=== PATIENT | female | born 1965 | race African-American/Black ===

== ENCOUNTER 2016-09-02 08:05 | Emergency (ER) | payer OTHER ==
[~2016-09-02] VITALS: Ht 160 cm; Wt 86.5 kg
[2016-09-02] MEDS ORDERED: METF500T4 PO (08:25)
[2016-09-02] MEDS ORDERED: MORPHINE SULFATE 4 MG/ML CPJ (NOT FOR IM USE) IV STA (08:41)
[2016-09-02] MEDS ORDERED: ASPIRIN 81MG TABLET PO STA (08:41)
[2016-09-02] MEDS ORDERED: ONDANSETRON HCL 4MG/2ML VIAL IV STA (08:41)
[2016-09-02] MEDS ORDERED: NITROGLYCERIN OINT 1GM/INCH UDPKT TD STA (08:41)
[2016-09-02 09:21] LABS: BASOPHILS % 0.7 % (0.0-2.0); HEMATOCRIT. 38.8 % (36.0-48.0); HEMOGLOBIN. 12.7 g/dL (12.0-16.0); LYMPHOCYTES % 33.3 % (20.0-50.0); MEAN CORPUSCULAR HEMOGLOBIN 29.5 pg (28.0-32.0); MEAN CORPUSCULAR HGB CONC 32.7 g/dL (31.0-37.0); MEAN CORPUSCULAR VOLUME 90.2 fL (81.0-99.0); MEAN PLATELET VOLUME 9.7 fl (7.4-10.4); MONOCYTES % 4.1 % (2.0-8.0); NEUTROPHILS % 58.9 % (40.0-76.0); PLATELET 220 x1000/uL (130-400); RED BLOOD CELL COUNT 4.31 mill/uL (4.2-5.4); RED CELL DISTRIBUTION WIDTH 14.1 % (11.6-14.6); WHITE BLOOD COUNT 10.6 x1000/uL (4.5-11.0)
[2016-09-02 09:32] LABS: ALBUMIN 3.6 g/dL (3.4-5.0); ANION GAP 13; CALCIUM 8.1 mg/dL (8.5-10.1); CARBON DIOXIDE 23 mEq/L (21-32); CHLORIDE 109 mEq/L (98-107); INDEX HEMOLYSI 4 (1-3); INDEX ICTERIC 1 (1-4); INDEX LIPEMIC 1 (1-3); LIPASE 187 IU/L (73-393); UREA NITROGEN BLOOD 12 mg/dL (7-21)
[2016-09-02 09:35] LABS: HCG SCREEN NEGATIVE
[2016-09-02 09:38] LABS: ALANINE AMINOTRANSFERASE 16 IU/L (13-61); CREATINE KINASE 185 IU/L (26-192); CREATINE KINASE MB FRACTION 0.8 ng/mL (0.5-3.6); NT PRO B-TYPE NATRIURETIC PEP 27 pg/mL (5-125); TROPONIN I < 0.02 ng/mL (0.00-0.04); eGFR > 60 mL/min (>60)
[2016-09-02 09:57] LABS: PARTIAL THROMBOPLASTIN TIME 26.6 sec (24.0-34.0); PROTHROMBIN TIME 10.4 sec
[2016-09-02 11:43] VITALS: BP 106/65
== END 2016-09-02 12:48 | disposition left against medical advice (07) ==
LOC: ER 08:06
DX: R07.9 Chest pain, unspecified (principal); R42 Dizziness and giddiness; E11.9 Type 2 diabetes mellitus without complications; F17.210 Nicotine dependence, cigarettes, uncomplicated; F12.10 Cannabis abuse, uncomplicated; Z79.4 Long term (current) use of insulin; Z98.890 Other specified postprocedural states
CPT/HCPCS: 36415; 70450; 71010; 80053; 82550; 82553; 83690; 83880; 84484; 84703; 85025; 85610; 85730; 93005; 96374; 96375; 99285; J2270; J2405

== ENCOUNTER 2017-02-06 09:52 | Emergency (ER) | payer OTHER ==
[~2017-02-06] VITALS: Ht 160 cm; Wt 84.0 kg
[~2017-02-06 09:52] MED LIST: METF500T4 PO
[2017-02-06] MEDS ORDERED: ACETAMINOPHEN 325MG TABLET PO STA (12:38)
[2017-02-06 14:26] LABS: CLARITY URINE CLOUDY (CLEAR); COLOR URINE YELLOW (YELLOW); GLUCOSE URINE NEGATIVE (NEGATIVE); KETONES URINE NEGATIVE (NEGATIVE); LEUKOCYTE ESTERASE URINE NEGATIVE (NEGATIVE); NITRITE URINE NEGATIVE (NEGATIVE); OCCULT BLOOD URINE NEGATIVE (NEGATIVE); PROTEIN URINE NEGATIVE (NEGATIVE); SPECIFIC GRAVITY URINE 1.024 (1.005-1.030); UROBILINOGEN URINE 0.2 E.U./dL (0.2-1.0)
[2017-02-06 14:41] VITALS: BP 130/94
== END 2017-02-06 15:18 | disposition home or self-care (01) ==
LOC: ER 13:09
DX: R10.2 Pelvic and perineal pain (principal); E11.9 Type 2 diabetes mellitus without complications; R03.0 Elevated blood-pressure reading, without diagnosis of hypertension; F17.210 Nicotine dependence, cigarettes, uncomplicated
CPT/HCPCS: 76830; 76856; 81001; 81025; 99285

== ENCOUNTER 2018-03-29 15:49 | Emergency (ER) | payer OTHER ==
[~2018-03-29] VITALS: Ht 160 cm; Wt 85.0 kg
[~2018-03-29 15:49] MED LIST changes: +METF-414 PO; -METF500T4 PO
[2018-03-29] MEDS ORDERED: SODIUM CHLORIDE 0.9% 1,000 ML IV ONE ×2 (16:45→20:07)
[2018-03-29] MEDS ORDERED: INSULIN REGULAR (HUMULIN R) 300UNITS/3ML SUBCUT ONE (16:45)
[2018-03-29 17:05] LABS: CLARITY URINE CLEAR (CLEAR); COLOR URINE YELLOW (YELLOW); KETONES URINE NEGATIVE (NEGATIVE); LEUKOCYTE ESTERASE URINE NEGATIVE (NEGATIVE); NITRITE URINE NEGATIVE (NEGATIVE); OCCULT BLOOD URINE TRACE (NEGATIVE); PH URINE 5.5 (4.5-8.0); PROTEIN URINE NEGATIVE (NEGATIVE); UROBILINOGEN URINE 0.2 E.U./dL (0.2-1.0)
[2018-03-29 17:06] LABS: BASOPHILS % 0.4 % (0.0-2.0); EOSINOPHILS % 2.9 % (0.0-5.0); HEMATOCRIT. 39.1 % (36.0-48.0); LYMPHOCYTES % 37.3 % (20.0-50.0); MEAN CORPUSCULAR HEMOGLOBIN 30.1 pg (28.0-32.0); MEAN CORPUSCULAR VOLUME 90.5 fL (81.0-99.0); MEAN PLATELET VOLUME 10.7 fl (7.4-10.4); MONOCYTES % 4.9 % (2.0-8.0); NEUTROPHILS % 54.5 % (40.0-76.0); PLATELET 237 x1000/uL (130-400); RED BLOOD CELL COUNT 4.32 mill/uL (4.2-5.4); RED CELL DISTRIBUTION WIDTH 13.1 % (11.6-14.6)
[2018-03-29 17:16] LABS: CHLORIDE 97 mEq/L (98-107)
[2018-03-29 21:44] VITALS: BP 120/89
== END 2018-03-29 21:46 | disposition home or self-care (01) ==
LOC: ER 15:49
DX: E11.65 Type 2 diabetes mellitus with hyperglycemia (principal); R03.0 Elevated blood-pressure reading, without diagnosis of hypertension; F17.210 Nicotine dependence, cigarettes, uncomplicated
CPT/HCPCS: 36415; 71045; 80053; 81003; 82962; 83605; 83690; 83880; 84443; 84484; 85025; 93005; 99285; J1815; J7030

== ENCOUNTER 2018-12-31 10:25 | Emergency (ER) | payer OTHER ==
[~2018-12-31] VITALS: Ht 160 cm; Wt 82.0 kg
[2018-12-31] MEDS ORDERED: IBUPROFEN 600MG TABLET PO ONE (12:15)
[2018-12-31 12:38] VITALS: BP 122/76
== END 2018-12-31 12:39 | disposition home or self-care (01) ==
LOC: ER 10:25
DX: O92.29 Other disorders of breast associated with pregnancy and the puerperium (principal)
CPT/HCPCS: 99283

== ENCOUNTER 2019-06-13 09:57 | Emergency (ER) | payer OTHER ==
[~2019-06-13] VITALS: Ht 160 cm; Wt 82.0 kg
[2019-06-13] MEDS ORDERED: IBUPROFEN 400MG TABLET PO ONE (11:00)
[2019-06-13 11:55] VITALS: BP 132/70
== END 2019-06-13 11:55 | disposition home or self-care (01) ==
LOC: ER 09:57
DX: M25.551 Pain in right hip (principal); M54.5 Low back pain; E11.9 Type 2 diabetes mellitus without complications; Z98.890 Other specified postprocedural states; W01.0XXA Fall on same level from slipping, tripping and stumbling without subsequent striking against object, initial encounter; Y93.89 Activity, other specified; Y92.89 Other specified places as the place of occurrence of the external cause; Y99.8 Other external cause status
CPT/HCPCS: 72100; 73502; 99283

== ENCOUNTER 2020-01-26 12:04 | Emergency (ER) | payer OTHER ==
[~2020-01-26] VITALS: Ht 160 cm; Wt 82.0 kg
[2020-01-26] MEDS ORDERED: SODIUM CHLORIDE 0.9% 1,000 ML IV ONE (14:13)
[2020-01-26] MEDS ORDERED: ACETAMINOPHEN 325MG TABLET PO STA (14:13)
[2020-01-26] MEDS ORDERED: METOCLOPRAMIDE HCL 10MG/2ML VIAL IV ONE (14:15)
[2020-01-26 14:33] LABS: BASOPHILS % 0.4 % (0.0-2.0); CHLORIDE 103 mEq/L (98-107); EOSINOPHILS % 1.6 % (0.0-5.0); HEMATOCRIT. 38.3 % (36.0-48.0); HEMOGLOBIN. 12.8 g/dL (12.0-16.0); LYMPHOCYTES % 28.6 % (20.0-50.0); MEAN CORPUSCULAR VOLUME 92.8 fL (81.0-99.0); MEAN PLATELET VOLUME 11.1 fl (7.4-10.4); MONOCYTES % 2.9 % (2.0-8.0); NEUTROPHILS % 66.5 % (40.0-76.0); PLATELET 259 x1000/uL (130-400); RED BLOOD CELL COUNT 4.13 mill/uL (4.2-5.4); RED CELL DISTRIBUTION WIDTH 13.6 % (11.6-14.6)
[2020-01-26 14:38] LABS: ETHANOL BLOOD < 10 mg/dL
[2020-01-26 14:50] LABS: CLARITY URINE CLEAR (CLEAR); COLOR URINE YELLOW (YELLOW); KETONES URINE NEGATIVE (NEGATIVE); LEUKOCYTE ESTERASE URINE NEGATIVE (NEGATIVE); NITRITE URINE NEGATIVE (NEGATIVE); OCCULT BLOOD URINE NEGATIVE (NEGATIVE); PH URINE 5.5 (4.5-8.0); PROTEIN URINE NEGATIVE (NEGATIVE)
[2020-01-26 15:07] LABS: *AMPHETAMINES SCREEN URINE NEGATIVE (NEGATIVE); *BARBITURATES SCREEN URINE NEGATIVE (NEGATIVE); *BENZODIAZEPINES SCREEN URINE NEGATIVE (NEGATIVE); *COCAINE SCREEN URINE NEGATIVE (NEGATIVE); METHADONE URINE SCREEN NEGATIVE (NEGATIVE)
[2020-01-26 15:08] LABS: CANNABINOID URINE SCREEN NEGATIVE (NEGATIVE); OPIATES URINE SCREEN NEGATIVE (NEGATIVE); PHENCYCLIDINE URINE SCREEN NEGATIVE (NEGATIVE)
[2020-01-26 18:55] VITALS: BP 102/68
== END 2020-01-26 19:36 | disposition home or self-care (01) ==
LOC: ER 12:23
DX: R51 Headache (principal); M54.2 Cervicalgia; E11.9 Type 2 diabetes mellitus without complications; Z98.890 Other specified postprocedural states
CPT/HCPCS: 36415; 70450; 71045; 80053; 80305; 80320; 81003; 82962; 83605; 85025; 85651; 86140; 86850; 86900; 86901; 93005; 96361; 96374; 99285; J2765; J7030; G0480

== ENCOUNTER 2020-07-12 11:16 | Emergency (ER) | payer OTHER ==
[~2020-07-12] VITALS: Ht 160 cm; Wt 63.4 kg
[~2020-07-12 11:16] MED LIST changes: +LIDOCAINE HCL/PF 1% 2ML VIAL ONE
[2020-07-12] MEDS ORDERED: SODIUM CHLORIDE 0.9% 1,000 ML IV ONE ×2 (11:45→14:00)
[2020-07-12 12:01] LABS: BASOPHILS % 0.7 % (0.0-2.0); HEMATOCRIT. 41.9 % (36.0-48.0); HEMOGLOBIN. 13.8 g/dL (12.0-16.0); LYMPHOCYTES % 26.4 % (20.0-50.0); MEAN CORPUSCULAR HEMOGLOBIN 30.6 pg (28.0-32.0); MEAN CORPUSCULAR VOLUME 92.9 fL (81.0-99.0); MEAN PLATELET VOLUME 10.9 fl (7.4-10.4); MONOCYTES % 4.6 % (2.0-8.0); NEUTROPHILS % 67.3 % (40.0-76.0); PLATELET 224 x1000/uL (130-400); RED BLOOD CELL COUNT 4.51 mill/uL (4.2-5.4)
[2020-07-12 12:02] LABS: CLARITY URINE CLEAR (CLEAR); COLOR URINE YELLOW (YELLOW); KETONES URINE 1+ (NEGATIVE); LEUKOCYTE ESTERASE URINE NEGATIVE (NEGATIVE); NITRITE URINE NEGATIVE (NEGATIVE); OCCULT BLOOD URINE NEGATIVE (NEGATIVE); PROTEIN URINE NEGATIVE (NEGATIVE); SPECIFIC GRAVITY URINE 1.035 (1.005-1.030); UROBILINOGEN URINE 0.2 E.U./dL (0.2-1.0)
[2020-07-12 12:07] LABS: CHLORIDE 86 mEq/L (98-107)
[2020-07-12 12:16] LABS: BETA HYDROXYBUTYRATE 1.5 mMol/L (0.0-0.3)
[2020-07-12] MEDS ORDERED: INSULIN REGULAR (HUMULIN R) 300UNITS/3ML VIAL SUBCUT NR (12:30)
[2020-07-12 14:11] LABS: BG BASE EXCESS -2.2 mmol/L (-2.0-2.0); BG CARBOXYHEMOGLOBIN 1.9 % (0.5-1.5); BG DEOXYHEMOGLOBIN 2.8 % (0.0-5.0); BG FRACTION INSPIRED OXYGEN 21; BG HCO3 ACT 22.4 mmol/L (22.0-26.0); BG METHEMOGLOBIN 0.1 % (0.0-1.5); BG OXYGEN SATURATION 97.1 % (92.0-98.5); BG OXYHEMOGLOBIN 95.2 % (94.0-97.0); BG PCO2 38.2 mmHg (35.0-45.0); BG PH 7.387 (7.350-7.450); BG SAMPLE SITE RIGHT RADIAL; BG VENT MODE ROOM AIR
[2020-07-12] MEDS ORDERED: INSULIN REGULAR (HUMULIN R) 300UNITS/3ML VIAL IV ONE (14:30)
[2020-07-12 21:15] VITALS: BP 107/79
== END 2020-07-12 21:14 | disposition home or self-care (01) ==
LOC: ER 11:56
DX: E11.65 Type 2 diabetes mellitus with hyperglycemia (principal); E87.8 Other disorders of electrolyte and fluid balance, not elsewhere classified; Z79.4 Long term (current) use of insulin; Z03.818 Encounter for observation for suspected exposure to other biological agents ruled out
CPT/HCPCS: 36415; 36600; 71045; 80053; 81003; 82010; 82375; 82805; 82962; 83690; 84484; 85025; 87426; 93005; 96361; 96372; 96374; 99285; J1815; J3490; J7030; Z7610

== ENCOUNTER 2023-07-27 16:10 | Emergency (ER) | payer MEDICAID, OTHER ==
[~2023-07-27] VITALS: Ht 165.1 cm; Wt 68.0 kg
[~2023-07-27 16:10] MED LIST changes: -LIDOCAINE HCL/PF 1% 2ML VIAL ONE
[2023-07-27 16:14] VITALS: BP 158/90; PULSE 110; RESP 20; TEMP 98.4; O2SAT 100
== END 2023-07-27 18:39 | disposition home or self-care (01) ==
LOC: ER 16:10
DX: S09.90XA Unspecified injury of head, initial encounter (principal); E11.9 Type 2 diabetes mellitus without complications; Z98.890 Other specified postprocedural states; W18.30XA Fall on same level, unspecified, initial encounter; Y93.89 Activity, other specified; Y92.89 Other specified places as the place of occurrence of the external cause; Y99.8 Other external cause status
CPT/HCPCS: 99281